=== PATIENT | female | born 1975 | race Caucasian/White ===

== ENCOUNTER → 2017-11-05 | Outpatient (CLI) | payer OTHER | END | disposition home or self-care (01) | LOC: LAB 13:08 → LAB SHORT 13:08 | PROVIDERS: Obstetrics & Gynecology | DX: R87.810 Cervical high risk human papillomavirus (HPV) DNA test positive (principal) | CPT/HCPCS: 87624; 88142 ==

== ENCOUNTER → 2019-05-02 | Outpatient (CLI) | payer OTHER ==
[2019-05-04 16:06] LABS: HPV 16 Negative (Negative); HPV 18 Negative (Negative); HPV OTHER HR TYPES Positive (Negative)
== END | disposition home or self-care (01) ==
LOC: LAB 16:36 → LAB SHORT 16:36
PROVIDERS: Obstetrics & Gynecology
DX: Z01.419 Encounter for gynecological examination (general) (routine) without abnormal findings (principal)
CPT/HCPCS: 87624; 87625; G0123